=== PATIENT | female | born 1955 | race Caucasian/White ===

== ENCOUNTER 2017-07-26 07:15 | Day surgery (SDC) | payer BC ==
[2017-07-23 14:25] LABS: BASOPHILS 0.3 % (0-2); EOSINOPHILS 0.9 % (0-7); HEMATOCRIT 40.5 % (36.0-48.0); HEMOGLOBIN 13.8 g/dL (12-16); IMMATURE GRANULOCYTES 0.4 % (0-5); MCH 30.9 pg (26.0-34.0); MCHC 34.1 g/dL (31.0-37.0); MCV 90.8 fL (80.0-100.0); MEAN PLATELET VOLUME 9.2 fL (7.4-10.4); MONOCYTES 7.6 % (2-11); NEUTROPHILS 62.8 % (40-80); PLATELET COUNT 222 10x3/uL (130-400); RBC 4.46 10x6/uL (4.00-5.40); RDW 12.9 % (11.5-14.5); WBC 6.7 10x3/uL (4.8-10.8)
[~2017-07-26] VITALS: Ht 160 cm; Wt 63.5 kg
--- NOTE | ~2017-07-26 | OP ---
PATIENT NAME: ANGEL BLUM MEDICAL RECORD: [id number] :53 LOCATION:[facility] ADMISSION DATE: SURGEON: FAN SHAW MD DATE OF OPERATION: 07/26/2017 PREOPERATIVE DIAGNOSIS: Medial meniscus tear of the left knee. POSTOPERATIVE DIAGNOSIS: Medial meniscus tear of the left knee. PROCEDURE: Arthroscopic partial medial meniscectomy of the left knee. ANESTHESIA: General. INTRAOPERATIVE COMPLICATIONS: None. SUMMARY OF PATHOLOGIC FINDINGS: The patient had a complex tear posterior horn of medial meniscus consistent with preoperative MRI. OPERATIVE SUMMARY IN DETAIL: After obtaining appropriate preoperative orthopedic surgery consent as well as anesthetic consultation, evaluation, and clearance, the patient was brought to the operating room and placed on the operating table in supine position. After general laryngeal mask airway was administered, tourniquet was placed on the proximal aspect of the left lower extremity. Left lower extremity was then prepped and draped in usual sterile fashion. The leg was elevated and exsanguinated. Tourniquet was inflated to 250 mmHg. Routine inferolateral portal was established followed by superomedial portal and inferomedial portal. Diagnostic arthroscopy showed the patient to have #1 complex tear of the posterior horn of the medial meniscus, mild chondromalacia of the apex of the patella as well as the deeper aspects of the trochlea. These were mild at best and did not require any operative intervention. After the diagnostic arthroscopy was finished, attention was turned to the medial meniscus tear. Combination of meniscotomes as well as an arthroscopic resector were utilized to debride the meniscus back to stable meniscal elements with good retention of the meniscus. A small area on the medial femoral condyle did have mild chondromalacia secondary to the torn meniscus itself. All was photographed intraoperatively. Having completed this, the knee was insufflated with 30 mL of 0.25% Marcaine and 80 mg of Depo-Medrol. Arthroscopy portals were closed in routine interrupted fashion using 4-0 Prolene. Sterile dressings were applied. The tourniquet was deflated. The patient was awakened and taken to recovery room in stable condition. All final needle and sponge counts were correct. TRANSINT:[id number] Voice Confirmation ID: [id number] DOCUMENT ID: [id number] FAN SHAW MD at 125 CC: [id number] DICTATION DATE: 07/26/17 1020 CAR CONSTRUCTION SUPERINTENDENT: 07/26/17 1133 REG [facility] [address] [place] [id number]
[~2017-07-26 07:15] MED LIST: LEVOTHYROXINE100 MCG PO; PROZAC20 MG PO; TAMOXIFEN CITRA20 MG PO; VALIUM 2 MG TAB2 MG PO
[2017-07-26 08:15] VITALS: BP 116/69; Ht 160 cm; Wt 63.5 kg
[2017-07-26] MEDS ORDERED: HYDROCODONE-APA1 TAB PO (10:17)
== END 2017-07-26 12:15 | disposition home or self-care (01) ==
LOC: D.OPS 07:15 → D.PAN 12:15 → D.OPS 12:15
PROVIDERS: Anesthesiology
DX: S83.242A Other tear of medial meniscus, current injury, left knee, initial encounter (principal); E03.9 Hypothyroidism, unspecified; Z01.812 Encounter for preprocedural laboratory examination

== ENCOUNTER 2018-01-09 09:19 | Observation (INO) | payer BC ==
[~2018-01-09] VITALS: Ht 160 cm; Wt 65.9 kg
--- NOTE | ~2018-01-09 | MORECARE ---
CASE MANAGEMENT DISCHARGE SUMMARY PATIENT: ANGEL BLUM UNIT: [id number] ADM DATE: 01/09/18 AGE: 62 : [birth year] SEX: F ROOM/BED: D.[facility] AUTHOR: OLGA ATKINSON PHYSICIAN: REFERRING PHYSICIAN: EDMUNDO MUÑIZ MD DATE OF SERVICE: 01/11/18 Discharge Plan Patient Name: ANGEL BLUM Facility: [facility]:[place] : 1955 Planned Disposition: Anticipated Discharge Date: Discharge Date: 01/09/2018 Expected LOS: 0 Initial Reviewer: [email or web address] Initial Review Date: 01/11/2018 Generated: 01/11/18 5:24 pm Patient Name: ANGEL BLUM Page [id number] at 1624 All edits/amendments must be made on the electronic document DICTATION DATE: 01/11/181622 LIQUID FLOOR AND WALL APPLIER: KINGSLEY 01/11/181622 RPT#: [id number] DC DATE:01/09/18 STATUS: DIS IN [facility] [address] [place] [address] END OF REPORT
[~2018-01-09 09:19] MED LIST changes: +HYDROCODONE-APA1 TAB PO
[2018-01-09 10:30] VITALS: BP 124/69
[2018-01-09 10:31] VITALS: Ht 160 cm; Wt 65.9 kg
[2018-01-09] MEDS ORDERED: REPATHA SY140 MG/1 M SC (10:42)
[2018-01-09] MEDS ORDERED: MERIBIN5 MG PO (11:04)
[2018-01-09] MEDS ORDERED: DESERYL50 M2 PO (11:06)
[2018-01-09] MEDS ORDERED: VITAMIN B COMPLEX SL (11:06)
[2018-01-09 12:02] LABS: APPEARANCE SL CLDY (CLEAR); BACTERIA FEW /hpf (NONE SEEN); BILIRUBIN NEGATIVE (NEGATIVE); COLOR YELLOW (YELLOW); EPITHELIAL CELLS 0-5 /hpf (0-5); GLUCOSE NEGATIVE (NEGATIVE); KETONE NEGATIVE (NEGATIVE); MUCUS <1+ /lpf (NONE SEEN); NITRITE NEGATIVE (NEGATIVE); PROTEIN NEGATIVE (NEGATIVE); RED CELLS - URINE 0-5 /hpf (0-5); UROBILINOGEN NORMAL (NORMAL); WHITE CELLS - URINE 0-5 /hpf (0-5)
[2018-01-09 12:03] LABS: AMORPHOUS SEDIMENT <1+ /lpf (NONE SEEN)
[2018-01-09 12:23] LABS: BASOPHILS 0.4 % (0-2); EOSINOPHILS 0.8 % (0-7); HEMATOCRIT 41.1 % (36.0-48.0); HEMOGLOBIN 14.1 g/dL (12-16); IMMATURE GRANULOCYTES 0.2 % (0-5); LYMPHOCYTES 36.8 % (15-50); MCH 30.5 pg (26.0-34.0); MCHC 34.3 g/dL (31.0-37.0); MEAN PLATELET VOLUME 9.7 fL (7.4-10.4); MONOCYTES 8.8 % (2-11); PLATELET COUNT 285 10x3/uL (130-400); RBC 4.62 10x6/uL (4.00-5.40); RDW 13.3 % (11.5-14.5); WBC 4.9 10x3/uL (4.8-10.8)
[2018-01-09 13:39] LABS: CALC OSMOLALITY 278 mosm/kg (275-300); CALCIUM 8.8 mg/dL (8.5-10.1); CARBON DIOXIDE 27.2 mmol/L (21.0-32.0); CHLORIDE - SERUM 103 mmol/L (98-107); CREATININE - SERUM 0.8 mg/dL (0.6-1.3); GLUCOSE 103 mg/dL (74-106); SODIUM 139 mmol/L (136-145); UREA NITROGEN 16 mg/dL (7-18); eGFR NON AFRICAN AMERICAN 77 mL/min (90-120)
[2018-01-09] MEDS ORDERED: PROTONIX40 MG PO (17:09)
[2018-01-09] MEDS ORDERED: NEURONTIN 300300 MG PO (17:09)
== END 2018-01-09 18:57 | disposition home or self-care (01) ==
LOC: D.ER 09:19 → D.MS 09:55 → OBSVTIME 09:56 → D.MS 18:57
PROVIDERS: Internal Medicine Nephrology
DX: K80.50 Calculus of bile duct without cholangitis or cholecystitis without obstruction (principal); M79.2 Neuralgia and neuritis, unspecified; E78.00 Pure hypercholesterolemia, unspecified; E03.9 Hypothyroidism, unspecified

== ENCOUNTER → 2018-02-08 08:29 | Outpatient (CLI) | payer BC ==
[2018-01-09 10:31] VITALS: BMI 25.7
[~2018-02-08 08:29] MED LIST changes: +DESERYL50 M2 PO; +MERIBIN5 MG PO; +NEURONTIN 300300 MG PO; +PROTONIX40 MG PO; +REPATHA SY140 MG/1 M SC; +VITAMIN B COMPLEX SL
== END | disposition home or self-care (01) ==
LOC: D.MRI 08:29
DX: D49.6 Neoplasm of unspecified behavior of brain (principal)

== ENCOUNTER → 2018-03-27 07:51 | Outpatient (CLI) | payer BC ==
[2018-01-09 10:31] VITALS: BMI 25.7
== END | disposition home or self-care (01) ==
LOC: D.NM 07:51
DX: K76.0 Fatty (change of) liver, not elsewhere classified (principal)

== ENCOUNTER → 2018-06-19 10:06 | Outpatient (CLI) | payer BC ==
[2018-01-09 10:31] VITALS: BMI 25.7
[2018-06-19 11:41] LABS: ALBUMIN 3.9 g/dL (3.4-5.0); BILIRUBIN - DIRECT 0.1 mg/dL (0.00-0.30); BILIRUBIN - INDIRECT 0.24 mg/dL (0.00-1.00); BILIRUBIN - TOTAL 0.34 mg/dL (0.2-1.3); PROTEIN - SERUM 7.3 g/dL (6.4-8.2)
== END | disposition home or self-care (01) ==
LOC: D.US 10:06
PROVIDERS: ATTEND Internal Medicine Gastroenterology
DX: K76.0 Fatty (change of) liver, not elsewhere classified (principal)

== ENCOUNTER → 2018-06-21 07:38 | Outpatient (CLI) | payer BC ==
[2018-01-09 10:31] VITALS: BMI 25.7
[2018-06-21 08:19] LABS: CREATININE - SERUM 0.8 mg/dL (0.6-1.3)
[2018-06-22 08:12] LABS: VITAMIN D 25 HYDROXY 54.5 ng/mL (30.0-100.0)
[2018-06-22 14:09] LABS: HEPATITIS C ANTIBODY 0.1 (0.0-0.9)
== END | disposition home or self-care (01) ==
LOC: D.MRI 06-20 08:00 → D.LAB 06-20 09:00 → D.MRI 07:38
PROVIDERS: ATTEND Internal Medicine Gastroenterology
DX: K76.9 Liver disease, unspecified (principal); R93.89 Abnormal findings on diagnostic imaging of other specified body structures; Z85.3 Personal history of malignant neoplasm of breast

== ENCOUNTER → 2018-10-10 13:25 | Outpatient (CLI) | payer BC ==
[2018-01-09 10:31] VITALS: BMI 25.7
[~2018-10-10 13:25] MED LIST changes: +PERCOCET 10-321 EAC1 PO; +VITAMIN B COMPLEX PO; -VITAMIN B COMPLEX SL; +ZOVIRAX400 MG PO
== END | disposition home or self-care (01) ==
LOC: D.MRI 13:25
PROVIDERS: ATTEND Orthopaedic Surgery
DX: S83.241A Other tear of medial meniscus, current injury, right knee, initial encounter (principal)

== ENCOUNTER → 2018-10-29 08:00 | Outpatient (CLI) | payer BC ==
[2018-01-09 10:31] VITALS: BMI 25.7
[~2018-10-29 08:00] MED LIST changes: -PERCOCET 10-321 EAC1 PO
[2018-10-29 09:20] LABS: HEMATOCRIT 40.2 % (36.0-48.0); HEMOGLOBIN 14.1 g/dL (12-16); MCH 30.3 pg (26.0-34.0); MCHC 35.1 g/dL (31.0-37.0); MCV 86.5 fL (80.0-100.0); MEAN PLATELET VOLUME 9.1 fL (7.4-10.4); RBC 4.65 10x6/uL (4.00-5.40); RDW 13.3 % (11.5-14.5); WBC 4.4 10x3/uL (4.8-10.8)
== END ==
LOC: D.OPS 08:00 → D.PAN 10-31 10:30 → D.OPS 10-31 13:25 → EDSTATUS 10-31 13:25 → D.PAN 10-31 13:25 → D.OPS 10-31 14:00
PROVIDERS: Anesthesiology; ATTEND Orthopaedic Surgery
DX: M93.269 Osteochondritis dissecans, unspecified knee (principal)

== ENCOUNTER 2018-11-14 08:47 | Day surgery (SDC) | payer BC ==
[~2018-11-14] VITALS: Ht 160 cm; Wt 64.9 kg
[2018-11-14 10:55] VITALS: BP 112/54; Ht 160 cm; Wt 64.9 kg
[2018-11-14 12:05] LABS: HEMATOCRIT 38.6 % (36.0-48.0); HEMOGLOBIN 13.3 g/dL (12-16); LYMPHOCYTES 36.2 % (15-50); MCHC 34.5 g/dL (31.0-37.0); MCV 87.1 fL (80.0-100.0); MEAN PLATELET VOLUME 8.8 fL (7.4-10.4); NEUTROPHILS 57.4 % (40-80); PLATELET COUNT 226 10x3/uL (130-400); RBC 4.43 10x6/uL (4.00-5.40); RDW 13.2 % (11.5-14.5)
[2018-11-14 12:17] LABS: INR 0.99 (0.85-1.17); PROTIME 12.6 SECONDS (11.6-15.0)
[2018-11-14] MEDS ORDERED: PERCOCET 10-321 EAC1 PO (13:38)
--- NOTE | 2018-11-18 11:59 | OP ---
PATIENT NAME: ANGEL BLUM MEDICAL RECORD: [id number] :53 LOCATION:[facility] ADMISSION DATE: SURGEON: FAN SHAW MD DATE OF OPERATION: 11/14/2018 PREOPERATIVE DIAGNOSIS: Subcondylar bony contusion. POSTOPERATIVE DIAGNOSES: 1. 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 2. Medial meniscus tear of the right knee. 3. 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 PROCEDURES: 1. Open OATS (osteochondral autograft transplant). 2. Arthroscopic partial medial meniscectomy. 3. Abrasion chondroplasty arthroscopically of the medial femoral condyle. SURGEON: Fan Shaw MD BONDING MACHINE TENDER: Warren Rojo SA INTRAOPERATIVE COMPLICATIONS: Essentially none. SUMMARY OF PATHOLOGIC FINDINGS: While the patient was thought to have a contusion only, probing of the medial femoral condyle did demonstrate a bony void just deep to the articular cartilage, which had multiple fissures as well as an area of grade IV chondromalacia. INDICATIONS: Ms. Blum is a 63-year-old female who has had medial joint line pain. She was sent for an MRI, they did not show meniscal pathology; however, it showed what was thought to be a medial femoral contusion with some suspicion of possible OCD lesion. Plans were made for subchondroplasty with the possibility of an osteochondral autograft transplant. At the time of arthroscopy, she was found to have an undersurface tear of the medial meniscus. She was found to have an area of chondromalacia that extended approximately 14 mm. At the time of arthroscopy, the decision was made to proceed with abrasion chondroplasty. However, while abrasion chondroplasty is being performed, the patient was found to have a very large bony defect more consistent with osteochondritis dissecans. For this reason, the decision was made intraoperatively to change from subchondroplasty to an OATS procedure; however, the medial meniscus was taken care of first. OPERATIVE SUMMARY IN DETAIL: After obtaining the appropriate preoperative orthopedic surgery consent as well as anesthetic consultation, evaluation, and clearance, the patient was brought to the operating room and placed on the operating table in the supine position. After adequate general laryngeal mask airway was administered, the right lower extremity was then prepped and draped in routine sterile fashion. The leg was elevated and exsanguinated, tourniquet was inflated to 350 mmHg. Routine inferolateral portal was established followed by superomedial portal and inferomedial portal. Diagnostic arthroscopy showed the patient had the area of chondromalacia as described above. Gentle probing did not show any bony deficit at this point; however, probing of the medial meniscus showed the patient obviously had a subsurface medial meniscus tear at approximately 1/2 of the OPERATIVE REPORT [id number] AREGO,ANGEL CHARLINE inner rim of the meniscus. Attention was first turned to meniscectomy. A combination of meniscotomes as well as the arthroscopic resector was utilized to debride the medial meniscus back to tear for stabilization. At this point, further probing showed that the patient did have the chondral fissuring; however, probing with an 18-gauge spinal needle that showed the patient to have a bony defect. For this reason, subchondroplasty was abandoned as it would likely result in intra-articular spread of the subchondroplasty substance. At this point, a decision was made to proceed with abrasion chondroplasty over the entire defect. When the small area of what appeared to be a bony void was treated with abrasion chondroplasty, copious amounts of fat and what appeared to be necrotic bone were immediately seen and at this point, the decision was made to prepare for an osteochondral autograft transplant. The entire area was treated with chondroplasty. The area of the loose chondral flaps was debrided back to subchondral bone. At this point, arthroscopy was terminated. A median based arthrotomy was performed and the area was examined and photographed. The area measured approximately 14 mm. However, the largest area of chondral defect was approximately 10-mm. The decision was made to proceed with an osteochondral autograft transplant. Paramedian arthrotomy was widened to the point to be able to laterally sublux the patella to approach the superolateral aspect of articular cartilage. The recipient site was taken down with the 10-mm Arthrex osteochondral autograft transplant system. It was placed on the back table and saved. The donor site was then taken from the superolateral to the lateral aspect of articular cartilage, that is a 10 x 10 plug was taken and then placed gently into the area of previous articular defect. This resulted in a very smooth articular contact area in the weightbearing surface of the distal medial femoral condyle. Having completed this, the recipient bone was placed in the donor site and tamped in gently as a bone graft substance. Again, intraoperative photos were taken through the arthrotomy. Having completed this, the wound was very gently debrided. The capsule was closed with #1 Vicryl. This was then followed by 2-0 Vicryl as well as a 3-0 Prolene. Sterile dressings were applied. Tourniquet was deflated. The patient was awakened and taken to the recovery room in stable condition. Please note that the arthroscopy portals were likewise closed, all final needle and sponge counts were correct. TRANSINT:[id number] Voice Confirmation ID: [id number] DOCUMENT ID: [id number] COLIN LAKHANI, FAN FULLER at 1159 CC: [id number] DICTATION DATE: 11/14/181658 LEG BREAKER: 11/15/18 0351 [facility] 11/14/18 [id number] [place] [address]
== END 2018-11-14 15:40 | disposition home or self-care (01) ==
LOC: D.OPS 08:47 → D.PAN 13:00 → D.OPS 15:40
PROVIDERS: Anesthesiology; ATTEND Orthopaedic Surgery
DX: M93.961 Osteochondropathy, unspecified, right lower leg (principal); S83.241A Other tear of medial meniscus, current injury, right knee, initial encounter

== ENCOUNTER → 2019-01-08 08:36 | Outpatient (CLI) | payer BC ==
[2018-11-14 10:55] VITALS: BMI 25.3
[~2019-01-08 08:36] MED LIST changes: +PERCOCET 10-321 EAC1 PO
[2019-01-08 09:46] LABS: ALBUMIN 3.6 g/dL (3.4-5.0); BILIRUBIN - DIRECT 0.05 mg/dL (0.00-0.30); BILIRUBIN - INDIRECT 0.23 mg/dL (0.00-1.00); BILIRUBIN - TOTAL 0.28 mg/dL (0.2-1.3); PROTEIN - SERUM 7.2 g/dL (6.4-8.2)
== END | disposition home or self-care (01) ==
LOC: D.US 08:36
PROVIDERS: ATTEND Internal Medicine Gastroenterology
DX: K76.0 Fatty (change of) liver, not elsewhere classified (principal)

== ENCOUNTER → 2019-11-25 08:13 | Outpatient (CLI) | payer MEDICARE, BC ==
[2018-11-14 10:55] VITALS: BMI 25.3
[2019-11-25 08:44] LABS: ALBUMIN 3.8 g/dL (3.4-5.0); BILIRUBIN - DIRECT 0.03 mg/dL (0.00-0.30); BILIRUBIN - INDIRECT 0.27 mg/dL (0.00-1.00); BILIRUBIN - TOTAL 0.3 mg/dL (0.2-1.3); PROTEIN - SERUM 7.3 g/dL (6.4-8.2)
== END | disposition home or self-care (01) ==
LOC: D.US 08:13
PROVIDERS: ATTEND Internal Medicine Gastroenterology
DX: K76.0 Fatty (change of) liver, not elsewhere classified (principal)